=== PATIENT | female | born 1945 | race Two or more races ===

== ENCOUNTER → 2017-02-16 | Outpatient (CLI) | payer MEDICARE | END | disposition home or self-care (01) | LOC: CYBERKNIFE 01-20 12:41 → ROC 06:33 | PROVIDERS: ATTEND Radiology Radiation Oncology | DX: G50.0 Trigeminal neuralgia (principal) | CPT/HCPCS: G0463 ==

== ENCOUNTER → 2017-10-26 | Outpatient (CLI) | payer MEDICARE | LOC: ROC 07:16 | PROVIDERS: ATTEND Radiology Radiation Oncology | DX: G50.0 Trigeminal neuralgia (principal) | CPT/HCPCS: G0463 ==

== ENCOUNTER 2021-02-01 00:50 | Inpatient (IN) | payer MEDICARE ==
[~2021-02-01] VITALS: Ht 160 cm; Wt 86.9 kg
--- NOTE | 2021-02-01 00:55 | NUR ---
Pt BIB by EMS from [facility] for generalized weakness and n/v. Pt reports that she is having difficulty standing up and that she lives alone and can't take care of herself when she is weak. Pt has known hx of leukemia. PIV started by prior facility. Connected to all monitors, VSS. Wears 2L NC at all times for COPD. WCTM
--- NOTE | 2021-02-01 01:43 | NUR ---
Port accessed to draw labs per pt request. Pt tolerated well, NADN
[2021-02-01 02:26] LABS: MEAN CORPUSCULAR HEMOGLOBIN 32.3 pg (27.0-34.8); MEAN CORPUSCULAR HGB CONC 35.1 g/dL (32.4-35.8); MEAN PLATELET VOLUME 8.1 fL (7.4-10.4); RED BLOOD COUNT 3.16 x10^6/uL (3.82-5.3); RED CELL DISTRIBUTION WIDTH 14.8 % (9.6-15.2)
[2021-02-01 02:34] LABS: ALBUMIN 2.7 g/dL (3.4-5.0); ANION GAP 6 mmol/L (5-15); CALCIUM 8.7 mg/dL (8.5-10.1); CHLORIDE 89 mmol/L (98-107); CREATININE 0.46 mg/dL (0.55-1.02)
[2021-02-01 03:22] LABS: PLATELET COUNT 127 x10^3/uL (130-400)
[2021-02-01 03:23] LABS: LYMPHS% (MANUAL) 63 % (22-44); MONOS#(MANUAL) 0.11 x10^3/uL (0.3-2.7); MONOS% (MANUAL) 6 % (2-9); SEG#(MANUAL) 0.59 x10^3/uL (1.8-6.8); SEGS% (MANUAL) 31 % (42-75)
[2021-02-01 03:25] LABS: <PLATELET ESTIMATE> DECREASED
[2021-02-01 03:28] LABS: LARGE PLATELETS 2+
[2021-02-01 03:29] LABS: ACANTHOCYTES 1+; ANISOCYTOSIS 1+; GIANT PLATELETS 1+; OVALOCYTES 1+
--- NOTE | 2021-02-01 04:25 | NUR ---
Report to Natalya DAVIDSON
[2021-02-01 04:57] VITALS: BP 156/79
[2021-02-01] MEDS ORDERED: ACETAMINOPHEN 325 MG TABLET PO PRN (05:00)
[2021-02-01] MEDS ORDERED: HEPARIN 5,000 UNITS/ML, 1ML SQ SCH (05:00)
[2021-02-01] MEDS: LACTATED RINGERS 1,000 ML IV SCH ×3 (05:16→20:28)
[2021-02-01 06:05] VITALS: BP 158/77
[2021-02-01] MEDS ORDERED: fioricet PO (06:13)
[2021-02-01] MEDS ORDERED: DULO60CA7 PO (06:13)
[2021-02-01] MEDS ORDERED: PROM5SYR PO (06:13)
[2021-02-01] MEDS ORDERED: WARF2TAB99 PO (06:13)
[2021-02-01] MEDS ORDERED: LISI-606 PO (06:13)
[2021-02-01] MEDS ORDERED: METO25TA4 PO (06:13)
[2021-02-01] MEDS ORDERED: ESOM40CA PO (06:13)
[2021-02-01] MEDS ORDERED: AZEL6DRO2 EACHEYE ×2 (06:13→06:26)
[2021-02-01] MEDS ORDERED: [UNRECOGNIZED DRUG - CODE] PO (06:13)
[2021-02-01] MEDS ORDERED: OXYC-307 PO (06:13)
[2021-02-01] MEDS ORDERED: SIMV40TA20 PO (06:13)
[2021-02-01] MEDS ORDERED: CYAN500T7 PO (06:26)
[2021-02-01] MEDS ORDERED: BACL-19 PO (06:26)
[2021-02-01] MEDS ORDERED: CETI10CA PO (06:26)
[2021-02-01] MEDS ORDERED: MULT-108 PO (06:26)
[2021-02-01] MEDS ORDERED: peptobismol (06:26)
[2021-02-01] MEDS ORDERED: clonidine patch TD (06:26)
[2021-02-01] MEDS ORDERED: WARF6TAB47 PO (06:26)
[2021-02-01] MEDS ORDERED: tums (06:26)
[2021-02-01] MEDS ORDERED: FLUT1DIS3 INH (06:26)
[2021-02-01] MEDS ORDERED: DIPH25CA61 PO (06:34)
[2021-02-01] MEDS ORDERED: FLUO15CR2 TP (06:34)
[2021-02-01] MEDS ORDERED: diclofenac sodium (06:34)
[2021-02-01] MEDS ORDERED: ALBU1.25 NEB (06:34)
[2021-02-01] MEDS ORDERED: ONDANSETRON PO (06:34)
[2021-02-01] MEDS ORDERED: diclofen (06:36)
[2021-02-01] MEDS ORDERED: diclofenac 1% gel TP (06:37)
[2021-02-01] MEDS ORDERED: [UNRECOGNIZED DRUG - OTHER] TP PRN (10:30)
[2021-02-01] MEDS ORDERED: [UNRECOGNIZED DRUG - REMARK] EACHEYE PRN (10:30)
[2021-02-01] MEDS ORDERED: CARBAMAZEPINE 600 MG PO SCH (10:30)
[2021-02-01] MEDS ORDERED: FLUOCINONIDE TP PRN (10:30)
[2021-02-01] MEDS ORDERED: EMOLLIENT TP PRN (10:30)
[2021-02-01] MEDS ORDERED: CYANOCOBALAMIN 500 MCG PO SCH (10:30)
[2021-02-01] MEDS ORDERED: TEMPLATE NON-FORMULARY MED. (Fluticasone/Salmeterol** (Advair 250-50 Diskus**) 1 PUFF) INH SCH (10:30)
[2021-02-01] MEDS ORDERED: CARBAMAZEPINE 200 MG TABLET PO SCH (11:30)
[2021-02-01] MEDS ORDERED: PROMETHAZINE/COD. 10MG/6.25MG/5 ML ORAL SOL PO PRN (11:30)
[2021-02-01] MEDS: BACLOFEN 10 MG TABLET PO SCH ×3 (11:36→20:28)
[2021-02-01] MEDS: METOPROLOL TARTRATE 25 MG TAB PO SCH ×2 (11:36→18:48)
[2021-02-01] MEDS: LISINOPRIL 5 MG TABLET PO SCH (11:39)
[2021-02-01] MEDS ORDERED: WARFARIN 5 MG TABLET PO-COUM ONE (11:40)
[2021-02-01] MEDS ORDERED: WARFARIN 2 MG TABLET PO-COUM SCH (11:43)
[2021-02-01 12:00] VITALS: BP 140/58
[2021-02-01 15:47] LABS: INTERNATIONAL NORMALIZED RATIO 5.8 (0.93-1.1)
[2021-02-01 15:49] LABS: PROTHROMBIN TIME 57.1 Seconds (9.6-11.5)
[2021-02-01] MEDS: CARBAMAZEPINE 200 MG TABLET PO SCH ×2 (16:09→20:28)
[2021-02-01] MEDS: OXYcodone/APAP 10/325MG TABLET PO PRN (17:27)
[2021-02-01 18:48] VITALS: BP 138/60
[2021-02-01] MEDS: MELATONIN 5 MG TABLET PO PRN (21:14)
[2021-02-02 01:37] VITALS: BP 147/70
[2021-02-02] MEDS: METOPROLOL TARTRATE 25 MG TAB PO SCH ×3 (02:06→18:21)
[2021-02-02] MEDS: OXYcodone/APAP 10/325MG TABLET PO PRN (02:11)
[2021-02-02] MEDS: LACTATED RINGERS 1,000 ML IV SCH ×3 (03:51→23:47)
[2021-02-02 04:24] LABS: ALANINE AMINOTRANSFERASE 10 U/L (12-78); ALBUMIN 2.3 g/dL (3.4-5.0); ANION GAP 4 mmol/L (5-15); CALCIUM 8.4 mg/dL (8.5-10.1); CHLORIDE 95 mmol/L (98-107); CREATININE 0.54 mg/dL (0.55-1.02)
[2021-02-02 04:26] LABS: ALKALINE PHOSPHATASE 90 U/L (45-117); BILIRUBIN,TOTAL 0.5 mg/dL (0.2-1.0); TOTAL PROTEIN 6.2 g/dL (6.4-8.2)
[2021-02-02 04:54] LABS: INTERNATIONAL NORMALIZED RATIO 2.35 (0.93-1.1); PROTHROMBIN TIME 24.1 Seconds (9.6-11.5)
[2021-02-02] MEDS: PANTOPRAZOLE 40MG TABLET PO SCH (06:00)
[2021-02-02] MEDS: CARBAMAZEPINE 200 MG TABLET PO SCH ×4 (06:03→20:30)
[2021-02-02 06:32] VITALS: BP 152/67
[2021-02-02] MEDS: CYANOCOBALAMIN 1,000 MCG TABLET PO SCH (09:07)
[2021-02-02] MEDS: BACLOFEN 10 MG TABLET PO SCH ×3 (09:07→20:30)
[2021-02-02] MEDS: LISINOPRIL 5 MG TABLET PO SCH (09:07)
[2021-02-02] MEDS: CETIRIZINE 10 MG TABLET PO SCH (09:07)
[2021-02-02] MEDS: DULOXETINE 30 MG CAPSULE.DR PO SCH (09:08)
[2021-02-02] MEDS: FLUTICASONE/VILANTEROL 100-25MCG/INH INH SCH (09:52)
[2021-02-02] MEDS ORDERED: MAGNESIUM SULFATE PMX 2GM/50ML 50 ML IV ONE (10:30)
[2021-02-02 10:57] VITALS: BP 161/84
[2021-02-02] MEDS: BUTALB/APAP/CAFFEINE 50MG/325MG/40MG PO PRN (10:59)
[2021-02-02 12:23] VITALS: BP 159/82
[2021-02-02] MEDS ORDERED: WARFARIN 2.5 MG TABLET PO-COUM SCH (18:00)
[2021-02-02 18:18] VITALS: BP 155/79
[2021-02-02] MEDS: MELATONIN 5 MG TABLET PO PRN (23:01)
[2021-02-03 00:15] VITALS: BP 172/76
[2021-02-03] MEDS: BUTALB/APAP/CAFFEINE 50MG/325MG/40MG PO PRN ×2 (00:29→23:53)
[2021-02-03] MEDS: hydrALAzine 20 MG/ML, 1ML IVPush PRN ×2 (00:42→23:57)
[2021-02-03] MEDS: METOPROLOL TARTRATE 25 MG TAB PO SCH ×3 (02:25→18:11)
[2021-02-03 02:26] VITALS: BP 149/67
[2021-02-03] MEDS: PANTOPRAZOLE 40MG TABLET PO SCH (05:29)
[2021-02-03] MEDS: CARBAMAZEPINE 200 MG TABLET PO SCH ×4 (05:29→20:38)
[2021-02-03] MEDS: ONDANSETRON 2MG/ML, 2ML IVPush PRN (05:29)
[2021-02-03 05:58] LABS: MEAN CORPUSCULAR HEMOGLOBIN 31.9 pg (27.0-34.8); MEAN CORPUSCULAR HGB CONC 34.3 g/dL (32.4-35.8); PLATELET COUNT 108 x10^3/uL (130-400); RED BLOOD COUNT 2.88 x10^6/uL (3.82-5.3); RED CELL DISTRIBUTION WIDTH 14.7 % (9.6-15.2)
[2021-02-03 06:10] LABS: ALBUMIN 2.4 g/dL (3.4-5.0); ANION GAP 5 mmol/L (5-15); CALCIUM 8.5 mg/dL (8.5-10.1); CHLORIDE 90 mmol/L (98-107); CREATININE 0.45 mg/dL (0.55-1.02); INTERNATIONAL NORMALIZED RATIO 1.91 (0.93-1.1); PROTHROMBIN TIME 19.8 Seconds (9.6-11.5)
[2021-02-03 06:41] VITALS: BP 155/66
[2021-02-03 06:43] LABS: SEG#(MANUAL) 0.32 x10^3/uL (1.8-6.8)
[2021-02-03 06:44] LABS: BAND#(MANUAL) 0.15 x10^3/uL; BANDS%(MANUAL) 9 % (0-7); LYMPH#(MANUAL) 0.94 x10^3/uL (1-3.4); LYMPHS% (MANUAL) 55 % (22-44); MONOS#(MANUAL) 0.15 x10^3/uL (0.3-2.7); MONOS% (MANUAL) 9 % (2-9); REACTIVE LYMPHS # (MANUAL) 0.03 x10^3/uL (0-0); REACTIVE LYMPHS % (MANUAL) 2 % (0-0)
[2021-02-03 06:52] LABS: <PLATELET ESTIMATE> DECREASED; <PLT MORPHOLOGY> NORMAL PLT MORPH; SEGS% (MANUAL) 19 % (42-75)
[2021-02-03 06:53] LABS: OTHER CELLS % (MANUAL) 6 % (0-0)
[2021-02-03] MEDS: FLUTICASONE/VILANTEROL 100-25MCG/INH INH SCH (09:00)
[2021-02-03] MEDS: LACTATED RINGERS 1,000 ML IV SCH ×3 (09:13→23:53)
[2021-02-03] MEDS: LISINOPRIL 5 MG TABLET PO SCH (09:13)
[2021-02-03] MEDS: CETIRIZINE 10 MG TABLET PO SCH (09:13)
[2021-02-03] MEDS: BACLOFEN 10 MG TABLET PO SCH ×3 (09:13→20:38)
[2021-02-03] MEDS: DULOXETINE 30 MG CAPSULE.DR PO SCH (09:13)
[2021-02-03] MEDS: CYANOCOBALAMIN 1,000 MCG TABLET PO SCH (09:14)
[2021-02-03] MEDS ORDERED: MAGNESIUM SULFATE PMX 2GM/50ML 50 ML IV ONE (09:30)
[2021-02-03] MEDS ORDERED: CYANOCOBALAMIN 1,000 MCG/ML, 1ML IM ONE (09:30)
[2021-02-03] MEDS: ZINC SULFATE 220 MG CAPSULE PO SCH (12:27)
[2021-02-03] MEDS: CHOLECALCIFEROL 5,000u TAB PO SCH (12:29)
[2021-02-03] MEDS: ASCORBIC ACID 500 MG TABLET PO SCH ×2 (12:30→18:11)
[2021-02-03] MEDS: SODIUM CHLORIDE 1 GM TABLET PO SCH (12:30)
[2021-02-03 13:56] VITALS: BP 152/84
[2021-02-03] MEDS: WARFARIN 2 MG TABLET PO-COUM SCH (18:10)
[2021-02-03 20:01] VITALS: BP 157/89
[2021-02-03 23:56] VITALS: BP 179/91
[2021-02-04] MEDS: MELATONIN 5 MG TABLET PO PRN ×2 (00:20→21:15)
[2021-02-04 00:21] VITALS: BP 134/64
[2021-02-04] MEDS: METOPROLOL TARTRATE 25 MG TAB PO SCH ×3 (02:39→17:18)
[2021-02-04] MEDS: PANTOPRAZOLE 40MG TABLET PO SCH (05:43)
[2021-02-04] MEDS: CARBAMAZEPINE 200 MG TABLET PO SCH ×4 (05:43→21:14)
[2021-02-04 06:08] LABS: MEAN CORPUSCULAR HGB CONC 34.5 g/dL (32.4-35.8); MEAN PLATELET VOLUME 8.2 fL (7.4-10.4); PLATELET COUNT 106 x10^3/uL (130-400); RED BLOOD COUNT 2.81 x10^6/uL (3.82-5.3)
[2021-02-04 06:18] LABS: ALBUMIN 2.4 g/dL (3.4-5.0); ANION GAP 5 mmol/L (5-15); CALCIUM 8.5 mg/dL (8.5-10.1); CHLORIDE 89 mmol/L (98-107)
[2021-02-04 06:43] VITALS: BP 157/82
[2021-02-04 06:44] LABS: PROTHROMBIN TIME 20.7 Seconds (9.6-11.5)
[2021-02-04 06:51] LABS: LYMPH#(MANUAL) 1.01 x10^3/uL (1-3.4); LYMPHS% (MANUAL) 78 % (22-44); METAMYELOCYTES# (MANUAL) 0.01 x10^3/uL (0-0); METAMYELOCYTES% (MANUAL) 1 % (0-1); MONOS#(MANUAL) 0.09 x10^3/uL (0.3-2.7); MONOS% (MANUAL) 7 % (2-9); SEG#(MANUAL) 0.18 x10^3/uL (1.8-6.8); SEGS% (MANUAL) 14 % (42-75)
[2021-02-04 06:53] LABS: <PLATELET ESTIMATE> DECREASED; <RBC MORPHOLOGY> NORMAL
[2021-02-04 06:54] LABS: LARGE PLATELETS 1+
[2021-02-04] MEDS: LISINOPRIL 5 MG TABLET PO SCH (09:00)
[2021-02-04] MEDS: ASCORBIC ACID 500 MG TABLET PO SCH ×2 (09:00→17:18)
[2021-02-04] MEDS: LACTATED RINGERS 1,000 ML IV SCH (09:00)
[2021-02-04] MEDS: DULOXETINE 30 MG CAPSULE.DR PO SCH (09:01)
[2021-02-04] MEDS: CETIRIZINE 10 MG TABLET PO SCH (09:01)
[2021-02-04] MEDS: CHOLECALCIFEROL 5,000u TAB PO SCH (09:01)
[2021-02-04] MEDS: ZINC SULFATE 220 MG CAPSULE PO SCH (09:01)
[2021-02-04] MEDS: SODIUM CHLORIDE 1 GM TABLET PO SCH ×3 (09:02→21:14)
[2021-02-04] MEDS: BACLOFEN 10 MG TABLET PO SCH ×3 (09:02→21:14)
[2021-02-04] MEDS: CYANOCOBALAMIN 1,000 MCG TABLET PO SCH (09:02)
[2021-02-04] MEDS: FLUTICASONE/VILANTEROL 100-25MCG/INH INH SCH (09:08)
[2021-02-04 14:55] VITALS: BP 150/75
[2021-02-04] MEDS: WARFARIN 2 MG TABLET PO-COUM SCH (17:19)
[2021-02-04] MEDS: BUTALB/APAP/CAFFEINE 50MG/325MG/40MG PO PRN (17:29)
[2021-02-04 21:10] VITALS: BP 148/78
[2021-02-05 01:55] VITALS: BP 148/62
[2021-02-05] MEDS: METOPROLOL TARTRATE 25 MG TAB PO SCH ×3 (01:57→18:26)
[2021-02-05] MEDS: CARBAMAZEPINE 200 MG TABLET PO SCH ×4 (05:02→20:22)
[2021-02-05] MEDS: PANTOPRAZOLE 40MG TABLET PO SCH (05:02)
[2021-02-05 05:36] LABS: MEAN CORPUSCULAR HEMOGLOBIN 32.8 pg (27.0-34.8); MEAN CORPUSCULAR HGB CONC 35.3 g/dL (32.4-35.8); MEAN PLATELET VOLUME 8.4 fL (7.4-10.4); PLATELET COUNT 100 x10^3/uL (130-400); RED BLOOD COUNT 2.66 x10^6/uL (3.82-5.3); RED CELL DISTRIBUTION WIDTH 14.8 % (9.6-15.2)
[2021-02-05 05:43] LABS: INTERNATIONAL NORMALIZED RATIO 2.64 (0.93-1.1)
[2021-02-05 05:44] LABS: ANION GAP 5 mmol/L (5-15); CALCIUM 8.5 mg/dL (8.5-10.1); CHLORIDE 90 mmol/L (98-107); CREATININE 0.45 mg/dL (0.55-1.02)
[2021-02-05 06:36] LABS: SEG#(MANUAL) 0.36 x10^3/uL (1.8-6.8); SEGS% (MANUAL) 24 % (42-75)
[2021-02-05 06:37] LABS: BAND#(MANUAL) 0.02 x10^3/uL; BANDS%(MANUAL) 1 % (0-7); EOS#(MANUAL) 0.02 x10^3/uL (0.0-0.4); EOS% (MANUAL) 1 % (1-7); LYMPH#(MANUAL) 0.92 x10^3/uL (1-3.4); LYMPHS% (MANUAL) 61 % (22-44); MONOS#(MANUAL) 0.18 x10^3/uL (0.3-2.7); MONOS% (MANUAL) 12 % (2-9); PYKNOTIC WBCs 3+; REACTIVE LYMPHS # (MANUAL) 0.02 x10^3/uL (0-0); REACTIVE LYMPHS % (MANUAL) 1 % (0-0)
[2021-02-05 06:40] LABS: <PLATELET ESTIMATE> DECREASED; LARGE PLATELETS 1+; OVALOCYTES 1+
[2021-02-05 07:17] VITALS: BP 144/79
[2021-02-05] MEDS: FLUTICASONE/VILANTEROL 100-25MCG/INH INH SCH (10:17)
[2021-02-05] MEDS: ASCORBIC ACID 500 MG TABLET PO SCH ×2 (10:18→16:41)
[2021-02-05] MEDS: ZINC SULFATE 220 MG CAPSULE PO SCH (10:18)
[2021-02-05] MEDS: CHOLECALCIFEROL 5,000u TAB PO SCH (10:18)
[2021-02-05] MEDS: LISINOPRIL 5 MG TABLET PO SCH (10:18)
[2021-02-05] MEDS: CETIRIZINE 10 MG TABLET PO SCH (10:19)
[2021-02-05] MEDS: DULOXETINE 30 MG CAPSULE.DR PO SCH (10:19)
[2021-02-05] MEDS: BACLOFEN 10 MG TABLET PO SCH ×3 (10:19→20:22)
[2021-02-05] MEDS: SODIUM CHLORIDE 1 GM TABLET PO SCH ×3 (10:19→20:22)
[2021-02-05] MEDS: CYANOCOBALAMIN 1,000 MCG TABLET PO SCH (10:20)
[2021-02-05 12:21] VITALS: BP 147/71
[2021-02-05] MEDS ORDERED: SODI1TAB PO (13:01)
[2021-02-05] MEDS ORDERED: ONDA4TAB7 PO (13:01)
[2021-02-05] MEDS: BUTALB/APAP/CAFFEINE 50MG/325MG/40MG PO PRN ×2 (14:39→21:59)
[2021-02-05] MEDS: WARFARIN 2 MG TABLET PO-COUM SCH (18:32)
[2021-02-05 20:28] VITALS: BP 143/60
[2021-02-05] MEDS: ONDANSETRON 2MG/ML, 2ML IVPush PRN (23:02)
[2021-02-06 00:56] VITALS: BP 146/64
[2021-02-06] MEDS: MELATONIN 5 MG TABLET PO PRN ×2 (00:57→20:42)
[2021-02-06] MEDS: METOPROLOL TARTRATE 25 MG TAB PO SCH ×3 (02:04→18:10)
[2021-02-06] MEDS: CARBAMAZEPINE 200 MG TABLET PO SCH ×4 (05:02→20:42)
[2021-02-06] MEDS: PANTOPRAZOLE 40MG TABLET PO SCH (05:02)
[2021-02-06 05:31] LABS: INTERNATIONAL NORMALIZED RATIO 2.73 (0.93-1.1); PROTHROMBIN TIME 27.8 Seconds (9.6-11.5)
[2021-02-06 05:32] LABS: ANION GAP 6 mmol/L (5-15); CALCIUM 8.1 mg/dL (8.5-10.1); CHLORIDE 89 mmol/L (98-107); CREATININE 0.51 mg/dL (0.55-1.02); MEAN CORPUSCULAR HEMOGLOBIN 31.9 pg (27.0-34.8); MEAN CORPUSCULAR HGB CONC 34.3 g/dL (32.4-35.8); MEAN PLATELET VOLUME 8.8 fL (7.4-10.4); PLATELET COUNT 94 x10^3/uL (130-400); RED BLOOD COUNT 2.57 x10^6/uL (3.82-5.3); RED CELL DISTRIBUTION WIDTH 14.6 % (9.6-15.2)
[2021-02-06 07:12] LABS: BAND#(MANUAL) 0.01 x10^3/uL; BANDS%(MANUAL) 1 % (0-7); BASOS#(MANUAL) 0.01 x10^3/uL (0-0.1); BASOS% (MANUAL) 1 % (0-1); LYMPH#(MANUAL) 0.96 x10^3/uL (1-3.4); LYMPHS% (MANUAL) 74 % (22-44); METAMYELOCYTES# (MANUAL) 0.01 x10^3/uL (0-0); METAMYELOCYTES% (MANUAL) 1 % (0-1); MONOS#(MANUAL) 0.18 x10^3/uL (0.3-2.7); MONOS% (MANUAL) 14 % (2-9); SEG#(MANUAL) 0.12 x10^3/uL (1.8-6.8); SEGS% (MANUAL) 9 % (42-75)
[2021-02-06 07:13] LABS: <PLATELET ESTIMATE> DECREASED; GIANT PLATELETS 1+; LARGE PLATELETS 1+; OVALOCYTES 1+
[2021-02-06] MEDS: DULOXETINE 30 MG CAPSULE.DR PO SCH (08:20)
[2021-02-06] MEDS: SODIUM CHLORIDE 1 GM TABLET PO SCH ×3 (08:20→20:42)
[2021-02-06] MEDS: CHOLECALCIFEROL 5,000u TAB PO SCH (08:20)
[2021-02-06] MEDS: CYANOCOBALAMIN 1,000 MCG TABLET PO SCH (08:20)
[2021-02-06] MEDS: ZINC SULFATE 220 MG CAPSULE PO SCH (08:20)
[2021-02-06] MEDS: ASCORBIC ACID 500 MG TABLET PO SCH ×2 (08:20→16:17)
[2021-02-06] MEDS: CETIRIZINE 10 MG TABLET PO SCH (08:20)
[2021-02-06] MEDS: LISINOPRIL 5 MG TABLET PO SCH (08:21)
[2021-02-06] MEDS: BACLOFEN 10 MG TABLET PO SCH ×3 (08:21→20:42)
[2021-02-06] MEDS: FLUTICASONE/VILANTEROL 100-25MCG/INH INH SCH (08:24)
[2021-02-06] MEDS ORDERED: SODIUM CHLORIDE 0.9% 1,000ML IVBOLUS ONE (10:30)
[2021-02-06 13:21] VITALS: BP 136/59
[2021-02-06] MEDS ORDERED: MAGNESIUM SULFATE PMX 4GM/100M 100 ML IVPB ONE (13:30)
[2021-02-06 14:18] LABS: ALANINE AMINOTRANSFERASE 9 U/L (12-78); ALBUMIN 2.4 g/dL (3.4-5.0); ANION GAP 6 mmol/L (5-15); CALCIUM 8.1 mg/dL (8.5-10.1); CHLORIDE 91 mmol/L (98-107); CREATININE 0.56 mg/dL (0.55-1.02)
[2021-02-06 14:20] LABS: ALKALINE PHOSPHATASE 95 U/L (45-117); BILIRUBIN,TOTAL 0.4 mg/dL (0.2-1.0); TOTAL PROTEIN 6.3 g/dL (6.4-8.2)
[2021-02-06] MEDS: WARFARIN 2 MG TABLET PO-COUM SCH (18:09)
[2021-02-06] MEDS: BUTALB/APAP/CAFFEINE 50MG/325MG/40MG PO PRN (18:12)
[2021-02-06 19:55] VITALS: BP 144/71
[2021-02-07] MEDS: SODIUM CHLORIDE 0.9% 1,000 ML IV SCH ×2 (00:07→09:41)
[2021-02-07] MEDS: BUTALB/APAP/CAFFEINE 50MG/325MG/40MG PO PRN ×3 (00:11→20:51)
[2021-02-07 00:28] VITALS: BP 140/80
[2021-02-07] MEDS: METOPROLOL TARTRATE 25 MG TAB PO SCH ×3 (03:48→17:59)
[2021-02-07 04:26] LABS: ANION GAP 5 mmol/L (5-15); CALCIUM 7.9 mg/dL (8.5-10.1); CHLORIDE 90 mmol/L (98-107); CREATININE 0.37 mg/dL (0.55-1.02)
[2021-02-07 05:52] LABS: INTERNATIONAL NORMALIZED RATIO 3.12 (0.93-1.1); PROTHROMBIN TIME 31.6 Seconds (9.6-11.5)
[2021-02-07] MEDS: PANTOPRAZOLE 40MG TABLET PO SCH (06:30)
[2021-02-07] MEDS: CARBAMAZEPINE 200 MG TABLET PO SCH ×4 (06:30→20:51)
[2021-02-07 06:43] VITALS: BP 142/68
[2021-02-07] MEDS: FLUTICASONE/VILANTEROL 100-25MCG/INH INH SCH (09:39)
[2021-02-07] MEDS: LISINOPRIL 5 MG TABLET PO SCH (09:40)
[2021-02-07] MEDS: DULOXETINE 30 MG CAPSULE.DR PO SCH (09:40)
[2021-02-07] MEDS: SODIUM CHLORIDE 1 GM TABLET PO SCH ×3 (09:40→20:50)
[2021-02-07] MEDS: CYANOCOBALAMIN 1,000 MCG TABLET PO SCH (09:40)
[2021-02-07] MEDS: BACLOFEN 10 MG TABLET PO SCH ×3 (09:40→20:51)
[2021-02-07] MEDS: ZINC SULFATE 220 MG CAPSULE PO SCH (09:40)
[2021-02-07] MEDS: ASCORBIC ACID 500 MG TABLET PO SCH ×2 (09:40→16:29)
[2021-02-07] MEDS: CHOLECALCIFEROL 5,000u TAB PO SCH (09:40)
[2021-02-07] MEDS: CETIRIZINE 10 MG TABLET PO SCH (09:40)
[2021-02-07] MEDS ORDERED: ARTIFICIAL TEARS 15 DROP/ML BOTTLE EACHEYE PRN (11:00)
[2021-02-07 15:00] VITALS: BP 147/83
[2021-02-07] MEDS: WARFARIN 2 MG TABLET PO-COUM SCH (17:59)
[2021-02-07 19:15] VITALS: BP 141/80
[2021-02-07] MEDS: MELATONIN 5 MG TABLET PO PRN (20:51)
[2021-02-08 02:52] VITALS: BP 147/77
[2021-02-08] MEDS: BUTALB/APAP/CAFFEINE 50MG/325MG/40MG PO PRN ×2 (02:52→08:41)
[2021-02-08] MEDS: METOPROLOL TARTRATE 25 MG TAB PO SCH ×2 (02:52→10:42)
[2021-02-08 05:30] LABS: INTERNATIONAL NORMALIZED RATIO 4.25 (0.93-1.1); PROTHROMBIN TIME 42.4 Seconds (9.6-11.5)
[2021-02-08 05:33] LABS: ANION GAP 7 mmol/L (5-15); CALCIUM 8.1 mg/dL (8.5-10.1); CHLORIDE 92 mmol/L (98-107); CREATININE 0.46 mg/dL (0.55-1.02)
[2021-02-08] MEDS: CARBAMAZEPINE 200 MG TABLET PO SCH ×2 (06:16→10:42)
[2021-02-08] MEDS: PANTOPRAZOLE 40MG TABLET PO SCH (06:16)
[2021-02-08] MEDS ORDERED: MAGNESIUM SULFATE PMX 4GM/100M 100 ML IVPB ONE (08:30)
[2021-02-08] MEDS: BACLOFEN 10 MG TABLET PO SCH (08:41)
[2021-02-08] MEDS: LISINOPRIL 5 MG TABLET PO SCH (08:42)
[2021-02-08] MEDS: DULOXETINE 30 MG CAPSULE.DR PO SCH (08:42)
[2021-02-08] MEDS: ASCORBIC ACID 500 MG TABLET PO SCH (08:42)
[2021-02-08] MEDS: CETIRIZINE 10 MG TABLET PO SCH (08:42)
[2021-02-08] MEDS: FLUTICASONE/VILANTEROL 100-25MCG/INH INH SCH (08:43)
[2021-02-08] MEDS: SODIUM CHLORIDE 1 GM TABLET PO SCH (08:43)
[2021-02-08] MEDS: CYANOCOBALAMIN 1,000 MCG TABLET PO SCH (08:43)
[2021-02-08] MEDS: CHOLECALCIFEROL 5,000u TAB PO SCH (08:43)
[2021-02-08] MEDS: ZINC SULFATE 220 MG CAPSULE PO SCH (08:43)
[2021-02-08 08:58] VITALS: BP 155/75
[2021-02-08] MEDS ORDERED: SENNA/DOCUSATE TABLET PO SCH (11:30)
[2021-02-08] MEDS ORDERED: POLYETHYLENE GLYCOL 17 GM PACKET PO PRN (11:30)
[2021-02-08] MEDS ORDERED: SENNA/DOCUSATE TABLET ONE (11:35)
[2021-02-08] MEDS ORDERED: POLYETHYLENE GLYCOL 17 GM PACKET ONE (11:36)
== END 2021-02-08 15:10 | disposition home health service (06) | DRG 640 ==
LOC: ED 01:28 → EDIP 03:42 → 4NW 04:40
PROVIDERS: ADMIT Internal Medicine; ATTEND Internal Medicine
DX: E87.1 Hypo-osmolality and hyponatremia (principal); G93.41 Metabolic encephalopathy; C92.00 Acute myeloblastic leukemia, not having achieved remission; C94.6 Myelodysplastic disease, not elsewhere classified; R11.2 Nausea with vomiting, unspecified; E11.9 Type 2 diabetes mellitus without complications; E78.5 Hyperlipidemia, unspecified; I10 Essential (primary) hypertension; K21.9 Gastro-esophageal reflux disease without esophagitis; J44.9 Chronic obstructive pulmonary disease, unspecified; Z79.01 Long term (current) use of anticoagulants; Z86.711 Personal history of pulmonary embolism; Z88.2 Allergy status to sulfonamides; T45.1X5A Adverse effect of antineoplastic and immunosuppressive drugs, initial encounter
CPT/HCPCS: 36415; 70450; 80048; 80053; 80069; 82040; 82140; 82962; 83605; 83735; 83930; 83935; 84100; 84300; 84443; 85025; 85610; 93005; 99285; G0378; J1644; J2405; J0360; J3420; J3475; J7030; J7120